=== PATIENT | male | born 1940 | race Caucasian/White ===

== ENCOUNTER 2017-07-24 09:06 | Inpatient (IN) | payer MEDICARE ==
[~2017-07-24] VITALS: Ht 177.8 cm; Wt 68.0 kg
[~2017-07-24 09:06] MED LIST: ACET-1600 PO; ACET500T71 PO; ALLO300T PO; ALPR0.25 PO; AMIO200T42 PO; ASCO10004 PO; ASPI-496 PO; ATOR20TA9 PO; CARV3.1212 PO; CARV3.122 PO; FERR325T18 PO; FURO-92 PO; FURO-93 PO; FURO20TA3 PO; HYDR-3237 PO; HYDR-3240 PO; IRON1TAB60 PO; IRON1TAB62 PO; LEVO750T6 PO; LOSA100T6 PO; LOSA25TA5 PO; LOVA20TA2 PO; MULT-658 PO; POTA99TA2 PO; POTA99TA3 PO; RIVA15TA PO; RIVA20TA PO; TRAM50TA2 PO; indocin PO
[2017-07-24] MEDS ORDERED: SODIUM CHLORIDE FLUSH 10ML SYR IVF ONE ×2 (09:30→10:30)
[2017-07-24 09:35] LABS: ABG COLLECTION SITE RIGHT RADIAL; COLLATERAL CIRCULATION TESTING NORMAL; FIO2 100 %
[2017-07-24 09:44] LABS: ASPARTATE AMINO TRANSFERASE 15 U/L (15-37); BLOOD UREA NITROGEN 13 mg/dL (7-18)
[2017-07-24 09:52] LABS: IS PT STATUS REG ER OR PRE ER? YES
[2017-07-24 09:58] LABS: HEMATOCRIT 28.9 % (39.2-51.8); HEMOGLOBIN 9.9 g/dL (13.7-18.0); WHITE BLOOD COUNT 2.4 x10^3/uL (3.4-10)
[2017-07-24] MEDS ORDERED: SUCCINYLCHOLINE 20 MG/ML, 10ML IVPush ONE (10:00)
[2017-07-24] MEDS ORDERED: MIDAZOLAM 1 MG/ML, 5ML IVPush ONE (10:00)
[2017-07-24] MEDS ORDERED: PROPOFOL 100 ML IV PRN (10:00)
[2017-07-24] MEDS ORDERED: ETOMIDATE 40 MG/20 ML IVPush ONE (10:00)
[2017-07-24 10:03] LABS: DIFF TOTAL CELLS COUNTED 100 CELL DIFF
[2017-07-24 10:16] LABS: ANISOCYTOSIS 1+; POLYCHROMASIA 1+; VERIFY COUNTS? YES
[2017-07-24 10:17] LABS: OVALOCYTES 1+
[2017-07-24] MEDS ORDERED: MIDAZOLAM 10MG/2 ML IVPush PRN (10:30)
[2017-07-24 10:43] LABS: RAPID INFLUENZA A Negative (Negative); RAPID INFLUENZA B Negative (Negative)
[2017-07-24] MEDS: MIDAZOLAM HCL 25 MG in SODIUM CHLORIDE 0.9% 245 ML IV PRN ×2 (10:59→14:36)
[2017-07-24] MEDS ORDERED: ALBUTEROL/IPRATROPIUM 2.5MG/0.5MG, 3 ML ONE ×2 (11:07→14:32)
[2017-07-24] MEDS ORDERED: ONDANSETRON 2MG/ML, 2ML IV PRN (11:30)
[2017-07-24] MEDS ORDERED: FUROSEMIDE 40 MG/4 ML ONE (11:58)
[2017-07-24] MEDS ORDERED: FUROSEMIDE 40 MG/4 ML IV ONE (12:00)
[2017-07-24] MEDS ORDERED: ALBUTEROL/IPRATROPIUM 2.5MG/0.5MG, 3 ML NEB ONE (12:00)
[2017-07-24] MEDS ORDERED: PHARMACY MAY ADJ FOR RENAL FX MC SCH (12:00)
[2017-07-24 12:06] LABS: IS PT STATUS REG ER OR PRE ER? YES
[2017-07-24] MEDS ORDERED: NOREPINEPHRINE 4 MG in SODIUM CHLORIDE 0.9% 246 ML IV PRN (14:00)
[2017-07-24] MEDS: HEPARIN 5,000 UNITS/ML, 1ML SQ SCH (17:07)
[2017-07-24 17:15] LABS: POTASSIUM,URINE RANDOM 26 mmol/L
[2017-07-24 18:16] LABS: ABG COLLECTION SITE RIGHT RADIAL; COLLATERAL CIRCULATION TESTING NORMAL
[2017-07-24 18:28] LABS: BLOOD UREA NITROGEN 14 mg/dL (7-18)
[2017-07-24 18:42] LABS: IS PT STATUS REG ER OR PRE ER? NO
[2017-07-24] MEDS: INSULIN ASPART 100 UNITS/ML, PEN SQ-INSULIN SCH ×2 (20:53→21:14)
[2017-07-24] MEDS: CARVEDILOL 3.125 MG TABLET PO SCH (20:53)
[2017-07-24] MEDS: SODIUM CHLORIDE FLUSH 10ML SYR IVF SCH (20:53)
[2017-07-24] MEDS: ATORVASTATIN 20 MG TABLET PO SCH (20:56)
[2017-07-24] MEDS: POTASSIUM CHLORIDE 20 MEQ PACKET PO SCH ×2 (20:56→21:14)
[2017-07-24] MEDS: FUROSEMIDE 20 MG/2 ML IVPush SCH (20:56)
[2017-07-24] MEDS ORDERED: ETOMIDATE 40 MG/20 ML ONE (23:00)
[2017-07-24] MEDS ORDERED: PROPOFOL 10 MG/ML, 20ML ONE (23:00)
[2017-07-24] MEDS ORDERED: MIDAZOLAM 1 MG/ML, 5ML ONE (23:00)
[2017-07-24] MEDS ORDERED: PROPOFOL 10 MG/ML, 100ML IV ONE (23:00)
[2017-07-24] MEDS ORDERED: SUCCINYLCHOLINE 20 MG/ML, 10ML ONE (23:00)
[2017-07-25] MEDS ORDERED: FUROSEMIDE 40 MG/4 ML IV ONE (01:00)
[2017-07-25] MEDS: HEPARIN 5,000 UNITS/ML, 1ML SQ SCH ×3 (01:52→17:54)
[2017-07-25] MEDS ORDERED: POTASSIUM CHLORIDE 20 MEQ TAB.ER.PRT PO ONE (02:30)
[2017-07-25] MEDS ORDERED: POTASSIUM CHLORIDE 20 MEQ PACKET PO ONE (03:00)
[2017-07-25 04:30] VITALS: BP 101/43
[2017-07-25 04:55] LABS: ABG COLLECTION SITE RIGHT RADIAL; COLLATERAL CIRCULATION TESTING NORMAL
[2017-07-25 05:02] LABS: BLOOD UREA NITROGEN 11 mg/dL (7-18)
[2017-07-25 05:08] LABS: ASPARTATE AMINO TRANSFERASE 19 U/L (15-37); HEMATOCRIT 24.5 % (39.2-51.8); HEMOGLOBIN 8.6 g/dL (13.7-18.0)
[2017-07-25 05:15] LABS: DIFF TOTAL CELLS COUNTED 100 CELL DIFF
[2017-07-25 05:16] LABS: WHITE BLOOD COUNT 1.3 x10^3/uL (3.4-10)
[2017-07-25 05:21] LABS: VERIFY COUNTS? YES
[2017-07-25 05:22] LABS: ANISOCYTOSIS 1+; MICROCYTOSIS 1+; OVALOCYTES 1+; POLYCHROMASIA 1+; SPHEROCYTES 1+
[2017-07-25] MEDS ORDERED: MAGNESIUM SULFATE PMX 4GM/100M 100 ML IV ONE (06:30)
[2017-07-25] MEDS ORDERED: MAGNESIUM SULFATE PMX 2GM/50ML 50 ML IV ONE (06:30)
[2017-07-25] MEDS ORDERED: ACETAMINOPHEN 650 MG/20.3 ML UDC PO PRN (08:30)
[2017-07-25] MEDS: INSULIN ASPART 100 UNITS/ML, PEN SQ-INSULIN SCH ×3 (08:37→21:24)
[2017-07-25] MEDS: AMIODARONE 200 MG TABLET PO SCH (08:37)
[2017-07-25] MEDS: FUROSEMIDE 20 MG/2 ML IVPush SCH (08:38)
[2017-07-25] MEDS: CARVEDILOL 3.125 MG TABLET PO SCH ×2 (08:38→21:11)
[2017-07-25] MEDS: ASCORBIC ACID 500 MG TABLET PO SCH (08:38)
[2017-07-25] MEDS: POTASSIUM CHLORIDE 20 MEQ PACKET PO SCH ×2 (08:38→21:25)
[2017-07-25] MEDS: MULTIVITAMIN 1 TABLET PO SCH (08:39)
[2017-07-25] MEDS: MULTIVITS,STRESS FORMULA 1 TABLET PO SCH (08:41)
[2017-07-25] MEDS ORDERED: DOCUSATE 100 MG CAPSULE PO SCH (09:00)
[2017-07-25] MEDS ORDERED: SODIUM CHLORIDE 0.9% 500 ML IV ONE (09:30)
[2017-07-25] MEDS ORDERED: VANCOMYCIN PER PHARMACY MC PRN (09:30)
[2017-07-25] MEDS: SODIUM CHLORIDE FLUSH 10ML SYR IVF SCH ×2 (09:58→21:12)
[2017-07-25] MEDS ORDERED: PIPERACILLIN/TAZO/PMX 3.375GM 50 ML IV SCH (10:00)
[2017-07-25] MEDS ORDERED: DOCUSATE 50 MG/5 ML, 10ML UDC NG SCH (10:25)
[2017-07-25 10:26] LABS: PATH.CAST-FLAG NOT PRESENT; SPERM-FLAG NOT PRESENT; SRC-FLAG NOT PRESENT; XTAL-FLAG NOT PRESENT; YLC-FLAG NOT PRESENT
[2017-07-25] MEDS: NOREPINEPHRINE 4 MG in SODIUM CHLORIDE 0.9% 246 ML IV PRN ×2 (10:52→17:53)
[2017-07-25] MEDS: VANCOMYCIN 1,400 MG in SODIUM CHLORIDE 0.9% 250 ML IV SCH (10:53)
[2017-07-25] MEDS ORDERED: PHARMACOKINETIC CONSULTATION MC ONE (11:00)
[2017-07-25] MEDS ORDERED: PHARMACOKINETIC MONITORING MC PRN ×2 (11:00)
[2017-07-25] MEDS: PROPOFOL 100 ML IV PRN (12:59)
[2017-07-25] MEDS: ACETAMINOPHEN 650 MG/20.3 ML UDC PO PRN (13:02)
[2017-07-25] MEDS: PIPERACILLIN/TAZO 3.375 GM in SODIUM CHLORIDE 0.9% 50 ML IV SCH (17:53)
[2017-07-25 19:29] LABS: IS PT STATUS REG ER OR PRE ER? NO
[2017-07-25] MEDS: ATORVASTATIN 20 MG TABLET PO SCH (21:25)
[2017-07-26] MEDS: PIPERACILLIN/TAZO 3.375 GM in SODIUM CHLORIDE 0.9% 50 ML IV SCH ×5 (01:02→23:46)
[2017-07-26] MEDS: HEPARIN 5,000 UNITS/ML, 1ML SQ SCH ×4 (01:03→23:48)
[2017-07-26] MEDS: NOREPINEPHRINE 4 MG in SODIUM CHLORIDE 0.9% 246 ML IV PRN ×2 (01:03→11:06)
[2017-07-26] MEDS: INSULIN ASPART 100 UNITS/ML, PEN SQ-INSULIN SCH ×4 (03:00→20:24)
[2017-07-26 04:00] LABS: HEMATOCRIT 26.8 % (39.2-51.8)
[2017-07-26 04:02] LABS: IS PT STATUS REG ER OR PRE ER? NO
[2017-07-26 04:09] LABS: WHITE BLOOD COUNT 1.1 x10^3/uL (3.4-10)
[2017-07-26 04:18] LABS: DIFF TOTAL CELLS COUNTED 100 CELL DIFF
[2017-07-26 04:21] LABS: ANISOCYTOSIS 1+; MICROCYTOSIS 1+; VERIFY COUNTS? YES
[2017-07-26 04:22] LABS: OVALOCYTES 1+; POLYCHROMASIA 1+; SPHEROCYTES 1+
[2017-07-26 04:36] LABS: ABG COLLECTION SITE LEFT RADIAL; COLLATERAL CIRCULATION TESTING NORMAL
[2017-07-26 05:00] VITALS: BP 128/51
[2017-07-26 07:41] LABS: BLOOD UREA NITROGEN 10 mg/dL (7-18)
[2017-07-26] MEDS: CARVEDILOL 3.125 MG TABLET PO SCH ×2 (09:00→20:11)
[2017-07-26] MEDS: SODIUM CHLORIDE 0.9% 500 ML IV SCH ×4 (09:52→11:05)
[2017-07-26] MEDS: PROPOFOL 100 ML IV PRN (09:55)
[2017-07-26] MEDS: MULTIVITAMIN 1 TABLET PO SCH (09:56)
[2017-07-26] MEDS: DOCUSATE 50 MG/5 ML, 10ML UDC NG SCH (09:56)
[2017-07-26] MEDS: AMIODARONE 200 MG TABLET PO SCH (09:56)
[2017-07-26] MEDS: ASCORBIC ACID 500 MG TABLET PO SCH (09:57)
[2017-07-26] MEDS: MULTIVITS,STRESS FORMULA 1 TABLET PO SCH (09:57)
[2017-07-26] MEDS: SODIUM CHLORIDE FLUSH 10ML SYR IVF SCH ×2 (11:06→20:11)
[2017-07-26] MEDS: VANCOMYCIN 1,400 MG in SODIUM CHLORIDE 0.9% 250 ML IV SCH (11:06)
[2017-07-26] MEDS: ACETAMINOPHEN 650 MG/20.3 ML UDC PO PRN (14:56)
[2017-07-26] MEDS ORDERED: NOREPINEPHRINE 4 MG in SODIUM CHLORIDE 0.9% 246 ML IV PRN (16:30)
[2017-07-26] MEDS: ATORVASTATIN 20 MG TABLET PO SCH (20:23)
[2017-07-27] MEDS: NOREPINEPHRINE 4 MG in SODIUM CHLORIDE 0.9% 246 ML IV PRN ×2 (02:58→23:55)
[2017-07-27] MEDS: INSULIN ASPART 100 UNITS/ML, PEN SQ-INSULIN SCH ×4 (03:00→19:54)
[2017-07-27] MEDS: ACETAMINOPHEN 650 MG/20.3 ML UDC PO PRN (03:00)
[2017-07-27 04:40] LABS: ABG COLLECTION SITE RIGHT BRACHIAL
[2017-07-27 04:54] VITALS: BP 112/50
[2017-07-27 05:12] LABS: HEMOGLOBIN 7.9 g/dL (13.7-18.0)
[2017-07-27 05:22] LABS: HEMATOCRIT 22.7 % (39.2-51.8); WHITE BLOOD COUNT 0.9 x10^3/uL (3.4-10)
[2017-07-27 05:33] LABS: BLOOD UREA NITROGEN 10 mg/dL (7-18)
[2017-07-27] MEDS: PIPERACILLIN/TAZO 3.375 GM in SODIUM CHLORIDE 0.9% 50 ML IV SCH ×4 (05:41→23:56)
[2017-07-27 06:12] LABS: DIFF TOTAL CELLS COUNTED 50 CELL DIFFERENTIAL
[2017-07-27 06:14] LABS: ANISOCYTOSIS 1+; MICROCYTOSIS 1+; OVALOCYTES 1+; POLYCHROMASIA 1+; VERIFY COUNTS? YES
[2017-07-27 06:16] LABS: SPHEROCYTES 1+
[2017-07-27] MEDS: PROPOFOL 100 ML IV PRN (06:35)
[2017-07-27] MEDS: AMIODARONE 200 MG TABLET PO SCH (08:40)
[2017-07-27] MEDS: MULTIVITAMIN 1 TABLET PO SCH (08:40)
[2017-07-27] MEDS: DOCUSATE 50 MG/5 ML, 10ML UDC NG SCH (08:40)
[2017-07-27] MEDS: HEPARIN 5,000 UNITS/ML, 1ML SQ SCH ×3 (08:40→23:56)
[2017-07-27] MEDS: ASCORBIC ACID 500 MG TABLET PO SCH (08:41)
[2017-07-27] MEDS: MULTIVITS,STRESS FORMULA 1 TABLET PO SCH (08:41)
[2017-07-27] MEDS: CARVEDILOL 3.125 MG TABLET PO SCH ×2 (09:00→21:00)
[2017-07-27] MEDS ORDERED: SODIUM CHLORIDE 0.9% 500 ML IV ONE (09:30)
[2017-07-27] MEDS: VASOPRESSIN 100 UNIT in SODIUM CHLORIDE 0.9% 495 ML IV PRN (09:36)
[2017-07-27] MEDS: SODIUM CHLORIDE FLUSH 10ML SYR IVF SCH ×2 (09:51→19:49)
[2017-07-27] MEDS: ATORVASTATIN 20 MG TABLET PO SCH (19:48)
[2017-07-28] VITALS (7 sets, daily range): BP systolic 101–134; BP diastolic 50–69
[2017-07-28] MEDS: INSULIN ASPART 100 UNITS/ML, PEN SQ-INSULIN SCH ×2 (03:00→08:26)
[2017-07-28 04:38] LABS: ABG COLLECTION SITE RIGHT BRACHIAL
[2017-07-28 04:41] LABS: BLOOD UREA NITROGEN 13 mg/dL (7-18)
[2017-07-28 04:42] LABS: HEMOGLOBIN 7.2 g/dL (13.7-18.0)
[2017-07-28 04:52] LABS: WHITE BLOOD COUNT 1.1 x10^3/uL (3.4-10)
[2017-07-28] MEDS: PIPERACILLIN/TAZO 3.375 GM in SODIUM CHLORIDE 0.9% 50 ML IV SCH (05:15)
[2017-07-28 05:39] LABS: DIFF TOTAL CELLS COUNTED 100 CELL DIFF
[2017-07-28 05:44] LABS: ANISOCYTOSIS 1+; MICROCYTOSIS 1+; POLYCHROMASIA 1+
[2017-07-28 05:45] LABS: OVALOCYTES 1+
[2017-07-28 05:46] LABS: LARGE PLATELETS 1+; SPHEROCYTES 1+; VERIFY COUNTS? YES
[2017-07-28] MEDS: HEPARIN 5,000 UNITS/ML, 1ML SQ SCH ×2 (08:25→18:15)
[2017-07-28] MEDS: AMIODARONE 200 MG TABLET PO SCH (08:26)
[2017-07-28] MEDS: MULTIVITS,STRESS FORMULA 1 TABLET PO SCH (08:26)
[2017-07-28] MEDS: CARVEDILOL 3.125 MG TABLET PO SCH ×2 (08:26→21:06)
[2017-07-28] MEDS: SODIUM CHLORIDE FLUSH 10ML SYR IVF SCH ×2 (08:26→21:05)
[2017-07-28] MEDS: MULTIVITAMIN 1 TABLET PO SCH (08:26)
[2017-07-28] MEDS: ASCORBIC ACID 500 MG TABLET PO SCH (08:26)
[2017-07-28] MEDS: DOCUSATE 50 MG/5 ML, 10ML UDC NG SCH (08:27)
[2017-07-28] MEDS ORDERED: FUROSEMIDE 20 MG/2 ML IV SCH (09:00)
[2017-07-28] MEDS: AZITHROMYCIN 500 MG in SODIUM CHLORIDE 0.9% 250 ML IV SCH (10:05)
[2017-07-28] MEDS: MEROPENEM 1 GM in SODIUM CHLORIDE 0.9% 100 ML IV SCH ×2 (10:05→18:15)
[2017-07-28] MEDS: VANCOMYCIN 50 MG/ML ORAL SUSP PO SCH ×2 (10:05→16:00)
[2017-07-28] MEDS: NOREPINEPHRINE 4 MG in SODIUM CHLORIDE 0.9% 246 ML IV PRN (14:05)
[2017-07-28] MEDS ORDERED: DIPHENHYDRAMINE 50 MG/ML, 1ML ONE (14:52)
[2017-07-28] MEDS ORDERED: methylPREDNISolone SOD SUCC 125 MG/2 ML ONE (14:53)
[2017-07-28] MEDS ORDERED: methylPREDNISolone SOD SUCC 125 MG/2 ML IVPush ONE (15:00)
[2017-07-28] MEDS ORDERED: DIPHENHYDRAMINE 50 MG/ML, 1ML IVPush ONE (15:00)
[2017-07-28] MEDS ORDERED: FUROSEMIDE 40 MG/4 ML ONE (15:01)
[2017-07-28 15:24] LABS: IS PT STATUS REG ER OR PRE ER? NO
[2017-07-28] MEDS ORDERED: FUROSEMIDE 40 MG/4 ML IV ONE (15:30)
[2017-07-28 15:32] LABS: ABG COLLECTION SITE LEFT BRACHIAL
[2017-07-28 15:49] LABS: PATH.CAST-FLAG NOT PRESENT; SPERM-FLAG NOT PRESENT; SRC-FLAG NOT PRESENT; XTAL-FLAG NOT PRESENT; YLC-FLAG NOT PRESENT
[2017-07-28 17:05] LABS: ABG COLLECTION SITE RIGHT RADIAL; COLLATERAL CIRCULATION TESTING NORMAL
[2017-07-28] MEDS: ATORVASTATIN 20 MG TABLET PO SCH (21:06)
[2017-07-28 21:13] LABS: ABG COLLECTION SITE RIGHT RADIAL; COLLATERAL CIRCULATION TESTING NORMAL
[2017-07-29] MEDS: HEPARIN 5,000 UNITS/ML, 1ML SQ SCH ×5 (00:41→23:41)
[2017-07-29] MEDS: MEROPENEM 1 GM in SODIUM CHLORIDE 0.9% 100 ML IV SCH ×3 (02:20→17:32)
[2017-07-29 03:54] VITALS: BP 116/57
[2017-07-29 04:56] LABS: ABG COLLECTION SITE RIGHT RADIAL
[2017-07-29] MEDS: VASOPRESSIN 100 UNIT in SODIUM CHLORIDE 0.9% 495 ML IV PRN (05:14)
[2017-07-29 05:24] LABS: HEMATOCRIT 23.5 % (39.2-51.8); HEMOGLOBIN 8.1 g/dL (13.7-18.0)
[2017-07-29 05:41] LABS: WHITE BLOOD COUNT 0.5 x10^3/uL (3.4-10)
[2017-07-29 05:52] LABS: DIFF TOTAL CELLS COUNTED 50 CELL DIFFERENTIAL
[2017-07-29 05:58] LABS: ANISOCYTOSIS 1+; MICROCYTOSIS 1+; POLYCHROMASIA 1+; VERIFY COUNTS? YES
[2017-07-29 05:59] LABS: OVALOCYTES 1+
[2017-07-29 06:00] LABS: COLLATERAL CIRCULATION TESTING NORMAL
[2017-07-29 06:03] LABS: SPHEROCYTES 1+
[2017-07-29 07:49] LABS: ABG COLLECTION SITE RIGHT RADIAL; COLLATERAL CIRCULATION TESTING NORMAL
[2017-07-29 08:04] LABS: BLOOD UREA NITROGEN 21 mg/dL (7-18)
[2017-07-29 08:27] LABS: HEMOGLOBIN 8.6 g/dL (13.7-18.0)
[2017-07-29 08:29] LABS: WHITE BLOOD COUNT 0.6 x10^3/uL (3.4-10)
[2017-07-29 08:36] LABS: ANISOCYTOSIS 1+; DIFF TOTAL CELLS COUNTED 50 CELL DIFFERENTIAL; MICROCYTOSIS 1+; OVALOCYTES 1+; POLYCHROMASIA 1+; SPHEROCYTES 1+; VERIFY COUNTS? YES
[2017-07-29] MEDS ORDERED: FUROSEMIDE 40 MG/4 ML IV STA (08:52)
[2017-07-29] MEDS: MULTIVITS,STRESS FORMULA 1 TABLET PO SCH (09:00)
[2017-07-29] MEDS: CARVEDILOL 3.125 MG TABLET PO SCH ×2 (09:00→20:43)
[2017-07-29] MEDS: DOCUSATE 50 MG/5 ML, 10ML UDC NG SCH (09:00)
[2017-07-29] MEDS: ASCORBIC ACID 500 MG TABLET PO SCH (09:00)
[2017-07-29] MEDS: MULTIVITAMIN 1 TABLET PO SCH (09:00)
[2017-07-29] MEDS: AZITHROMYCIN 500 MG in SODIUM CHLORIDE 0.9% 250 ML IV SCH (09:07)
[2017-07-29] MEDS: SODIUM CHLORIDE FLUSH 10ML SYR IVF SCH ×2 (09:08→20:43)
[2017-07-29] MEDS: AMIODARONE 200 MG TABLET PO SCH (12:04)
[2017-07-29] MEDS: ATORVASTATIN 20 MG TABLET PO SCH (20:43)
[2017-07-30] MEDS: MEROPENEM 1 GM in SODIUM CHLORIDE 0.9% 100 ML IV SCH ×3 (02:39→20:46)
[2017-07-30 04:00] VITALS: BP 104/53
[2017-07-30 05:08] LABS: BLOOD UREA NITROGEN 37 mg/dL (7-18)
[2017-07-30 05:50] LABS: DIFF TOTAL CELLS COUNTED 100 CELL DIFF
[2017-07-30 05:51] LABS: HEMATOCRIT 23.8 % (39.2-51.8); HEMOGLOBIN 7.9 g/dL (13.7-18.0)
[2017-07-30 05:53] LABS: WHITE BLOOD COUNT 1.1 x10^3/uL (3.4-10)
[2017-07-30 05:57] LABS: VERIFY COUNTS? YES
[2017-07-30 05:58] LABS: GIANT PLATELETS 1+; LARGE PLATELETS 1+
[2017-07-30 06:00] LABS: ANISOCYTOSIS 1+; MICROCYTOSIS 1+; POLYCHROMASIA 1+
[2017-07-30 06:02] LABS: SPHEROCYTES 1+
[2017-07-30] MEDS ORDERED: POTASSIUM CHLORIDE 20 MEQ TAB.ER.PRT PO ONE (08:00)
[2017-07-30] MEDS: CARVEDILOL 3.125 MG TABLET PO SCH (09:00)
[2017-07-30] MEDS: HEPARIN 5,000 UNITS/ML, 1ML SQ SCH ×3 (09:00→17:02)
[2017-07-30] MEDS ORDERED: FUROSEMIDE 40 MG/4 ML IV ONE (09:00)
[2017-07-30] MEDS: ASCORBIC ACID 500 MG TABLET PO SCH (10:20)
[2017-07-30] MEDS: MULTIVITAMIN 1 TABLET PO SCH (10:20)
[2017-07-30] MEDS: AZITHROMYCIN 500 MG in SODIUM CHLORIDE 0.9% 250 ML IV SCH (10:20)
[2017-07-30] MEDS: MULTIVITS,STRESS FORMULA 1 TABLET PO SCH (10:20)
[2017-07-30] MEDS: DOCUSATE 50 MG/5 ML, 10ML UDC NG SCH (10:21)
[2017-07-30] MEDS: AMIODARONE 200 MG TABLET PO SCH (10:21)
[2017-07-30] MEDS: SODIUM CHLORIDE FLUSH 10ML SYR IVF SCH ×2 (10:21→21:03)
[2017-07-30] MEDS ORDERED: NOREPINEPHRINE 4 MG in SODIUM CHLORIDE 0.9% 246 ML IV PRN (16:30)
[2017-07-30] MEDS: ATORVASTATIN 20 MG TABLET PO SCH (21:03)
[2017-07-31] MEDS: HEPARIN 5,000 UNITS/ML, 1ML SQ SCH ×3 (01:46→17:20)
[2017-07-31 04:00] VITALS: BP 95/52
[2017-07-31] MEDS: MEROPENEM 1 GM in SODIUM CHLORIDE 0.9% 100 ML IV SCH (04:27)
[2017-07-31 05:22] LABS: BLOOD UREA NITROGEN 32 mg/dL (7-18)
[2017-07-31 05:45] LABS: HEMATOCRIT 23.1 % (39.2-51.8); HEMOGLOBIN 7.7 g/dL (13.7-18.0)
[2017-07-31 05:47] LABS: DIFF TOTAL CELLS COUNTED 100 CELL DIFF; WHITE BLOOD COUNT 1.1 x10^3/uL (3.4-10)
[2017-07-31 05:54] LABS: ANISOCYTOSIS 1+; GIANT PLATELETS 1+; LARGE PLATELETS 1+; MICROCYTOSIS 1+; POLYCHROMASIA 1+; SPHEROCYTES 1+; VERIFY COUNTS? YES
[2017-07-31 05:55] LABS: OVALOCYTES 1+
[2017-07-31] MEDS: DOCUSATE 50 MG/5 ML, 10ML UDC NG SCH (08:16)
[2017-07-31] MEDS ORDERED: POTASSIUM CHLORIDE 40 MEQ in SODIUM CHLORIDE 0.9% 100 ML IV ONE (08:30)
[2017-07-31] MEDS: ASCORBIC ACID 500 MG TABLET PO SCH (08:53)
[2017-07-31] MEDS: MULTIVITS,STRESS FORMULA 1 TABLET PO SCH (08:54)
[2017-07-31] MEDS: MULTIVITAMIN 1 TABLET PO SCH (08:54)
[2017-07-31] MEDS: FUROSEMIDE 40 MG TABLET PO SCH (08:54)
[2017-07-31] MEDS: AMIODARONE 200 MG TABLET PO SCH (08:54)
[2017-07-31] MEDS: AZITHROMYCIN 500 MG in SODIUM CHLORIDE 0.9% 250 ML IV SCH (08:54)
[2017-07-31] MEDS: SODIUM CHLORIDE FLUSH 10ML SYR IVF SCH ×2 (08:55→20:30)
[2017-07-31] MEDS ORDERED: VASOPRESSIN 100 UNIT in SODIUM CHLORIDE 0.9% 495 ML IV PRN (09:00)
[2017-07-31] MEDS ORDERED: LEVOFLOXACIN/PMX 500MG/100ML 100 ML IV SCH (09:00)
[2017-07-31] MEDS: LEVOFLOXACIN/PMX 750MG/150ML 150 ML IV SCH (10:08)
[2017-07-31 14:24] VITALS: BP 117/70
[2017-07-31 19:13] VITALS: BP 110/67
[2017-07-31] MEDS: ATORVASTATIN 20 MG TABLET PO SCH (20:30)
[2017-08-01] VITALS (7 sets, daily range): BP systolic 102–125; BP diastolic 63–78
[2017-08-01] MEDS: HEPARIN 5,000 UNITS/ML, 1ML SQ SCH ×3 (01:32→17:42)
[2017-08-01 05:56] LABS: BLOOD UREA NITROGEN 23 mg/dL (7-18)
[2017-08-01 05:58] LABS: HEMOGLOBIN 7.6 g/dL (13.7-18.0)
[2017-08-01 06:06] LABS: HEMATOCRIT 22.1 % (39.2-51.8); WHITE BLOOD COUNT 1.1 x10^3/uL (3.4-10)
[2017-08-01 06:22] LABS: DIFF TOTAL CELLS COUNTED 100 CELL DIFF
[2017-08-01 06:29] LABS: ANISOCYTOSIS 1+; MICROCYTOSIS 1+; POLYCHROMASIA 1+; VERIFY COUNTS? YES
[2017-08-01 06:30] LABS: LARGE PLATELETS 1+; OVALOCYTES 1+; SPHEROCYTES 1+
[2017-08-01] MEDS ORDERED: POTASSIUM CHLORIDE 40 MEQ in SODIUM CHLORIDE 0.9% 100 ML IV ONE (07:00)
[2017-08-01] MEDS: DOCUSATE 50 MG/5 ML, 10ML UDC NG SCH (09:00)
[2017-08-01] MEDS: LEVOFLOXACIN/PMX 750MG/150ML 150 ML IV SCH (09:15)
[2017-08-01] MEDS: AMIODARONE 200 MG TABLET PO SCH (09:17)
[2017-08-01] MEDS: SODIUM CHLORIDE FLUSH 10ML SYR IVF SCH ×2 (09:17→19:28)
[2017-08-01] MEDS: POTASSIUM CHLORIDE 20 MEQ PACKET PO SCH (09:17)
[2017-08-01] MEDS: FUROSEMIDE 40 MG TABLET PO SCH (09:18)
[2017-08-01] MEDS: MULTIVITAMIN 1 TABLET PO SCH (09:18)
[2017-08-01] MEDS: ASCORBIC ACID 500 MG TABLET PO SCH (09:18)
[2017-08-01] MEDS: MULTIVITS,STRESS FORMULA 1 TABLET PO SCH (09:18)
[2017-08-01] MEDS: AZITHROMYCIN 500 MG in SODIUM CHLORIDE 0.9% 250 ML IV SCH (11:41)
[2017-08-01] MEDS ORDERED: FUROSEMIDE 20 MG/2 ML IV ONE ×2 (13:30)
[2017-08-01] MEDS ORDERED: POTASSIUM CHLORIDE 20 MEQ TAB.ER.PRT PO SCH (17:00)
[2017-08-01] MEDS: ATORVASTATIN 20 MG TABLET PO SCH (19:28)
[2017-08-02 00:22] VITALS: BP 103/59
[2017-08-02] MEDS: HEPARIN 5,000 UNITS/ML, 1ML SQ SCH ×2 (03:47→12:00)
[2017-08-02 04:36] LABS: BLOOD UREA NITROGEN 19 mg/dL (7-18)
[2017-08-02 04:43] LABS: HEMATOCRIT 26.3 % (39.2-51.8); HEMOGLOBIN 8.6 g/dL (13.7-18.0)
[2017-08-02 04:44] LABS: WHITE BLOOD COUNT 1.7 x10^3/uL (3.4-10)
[2017-08-02 04:48] LABS: DIFF TOTAL CELLS COUNTED 100 CELL DIFF
[2017-08-02 04:53] LABS: ANISOCYTOSIS 1+; MICROCYTOSIS 1+; VERIFY COUNTS? YES
[2017-08-02 04:54] LABS: GIANT PLATELETS 1+; LARGE PLATELETS 1+; OVALOCYTES 1+; POLYCHROMASIA 1+; SPHEROCYTES 1+
[2017-08-02 08:14] VITALS: BP 113/66
[2017-08-02] MEDS: ASCORBIC ACID 500 MG TABLET PO SCH (08:18)
[2017-08-02] MEDS: CARVEDILOL 3.125 MG TABLET PO SCH (08:18)
[2017-08-02] MEDS: LEVOFLOXACIN/PMX 750MG/150ML 150 ML IV SCH (08:18)
[2017-08-02] MEDS: MULTIVITS,STRESS FORMULA 1 TABLET PO SCH (08:18)
[2017-08-02] MEDS: POTASSIUM CHLORIDE 20 MEQ PACKET PO SCH (08:18)
[2017-08-02] MEDS: MULTIVITAMIN 1 TABLET PO SCH (08:19)
[2017-08-02] MEDS: AMIODARONE 200 MG TABLET PO SCH (08:19)
[2017-08-02] MEDS: SODIUM CHLORIDE FLUSH 10ML SYR IVF SCH (08:19)
[2017-08-02] MEDS: DOCUSATE 50 MG/5 ML, 10ML UDC NG SCH (08:19)
[2017-08-02] MEDS: FUROSEMIDE 40 MG TABLET PO SCH (08:19)
[2017-08-02 14:17] VITALS: BP 104/68
== END 2017-08-02 17:41 | disposition home or self-care (01) | DRG 871 ==
LOC: ED 10:09 → EDIP 10:27 → CCU 15:59 → 5SO 07-31 14:16
PROVIDERS: ADMIT Family Medicine; ATTEND Family Medicine
PROC: 5A1945Z Respiratory Ventilation, 24-96 Consecutive Hours (ICD-10-PCS; 2017-07-24)
PROC: 0BH17EZ Insertion of Endotracheal Airway into Trachea, Via Natural or Artificial Opening (ICD-10-PCS; 2017-07-24)
PROC: 0T9B70Z Drainage of Bladder with Drainage Device, Via Natural or Artificial Opening (ICD-10-PCS; principal; 2017-07-25)
PROC: 30233N1 Transfusion of Nonautologous Red Blood Cells into Peripheral Vein, Percutaneous Approach (ICD-10-PCS; 2017-07-28)
PROC: 5A09457 Assistance with Respiratory Ventilation, 24-96 Consecutive Hours, Continuous Positive Airway Pressure (ICD-10-PCS; 2017-07-28)
DX: A41.9 Sepsis, unspecified organism (principal); J96.21 Acute and chronic respiratory failure with hypoxia; J69.0 Pneumonitis due to inhalation of food and vomit; Z99.11 Dependence on respirator [ventilator] status; E87.4 Mixed disorder of acid-base balance; D70.9 Neutropenia, unspecified; C95.90 Leukemia, unspecified not having achieved remission; I50.43 Acute on chronic combined systolic (congestive) and diastolic (congestive) heart failure; J96.22 Acute and chronic respiratory failure with hypercapnia; N17.9 Acute kidney failure, unspecified; D46.21 Refractory anemia with excess of blasts 1; D69.6 Thrombocytopenia, unspecified; E87.6 Hypokalemia; G89.29 Other chronic pain; I05.0 Rheumatic mitral stenosis; I11.0 Hypertensive heart disease with heart failure; I25.10 Atherosclerotic heart disease of native coronary artery without angina pectoris; I25.5 Ischemic cardiomyopathy; I48.0 Paroxysmal atrial fibrillation; J44.9 Chronic obstructive pulmonary disease, unspecified; R04.0 Epistaxis; Z51.5 Encounter for palliative care; Z86.718 Personal history of other venous thrombosis and embolism; I25.2 Old myocardial infarction; Z87.891 Personal history of nicotine dependence; Z99.81 Dependence on supplemental oxygen; Z88.5 Allergy status to narcotic agent; Z88.8 Allergy status to other drugs, medicaments and biological substances; Z91.040 Latex allergy status; Z79.899 Other long term (current) drug therapy
CPT/HCPCS: 31500; 36415; 36600; 51702; 71010; 80048; 80053; 81001; 82436; 82533; 82803; 82962; 83036; 83605; 83735; 83880; 84133; 84300; 84443; 84478; 84484; 85025; 85610; 85730; 86078; 86850; 86900; 86923; 87040; 87070; 87077; 87081; 87186; 87205; 87324; 87400; 93005; 93306; 94002; 94003; 94150; 94660; J0456; J1644; J1815; J1940; J1956; J2185; J2250; J2543; J2704; J3370; J3480; J7620; J0330; J1200; J2930; J3475; J7040; J7050; P9016; P9040

== ENCOUNTER 2017-08-25 11:07 | Inpatient (IN) | payer MEDICARE ==
[~2017-08-25] VITALS: Ht 162.6 cm; Wt 69.0 kg
[2017-08-25] MEDS ORDERED: FUROSEMIDE 40 MG/4 ML ONE (11:27)
[2017-08-25] MEDS ORDERED: SODIUM CHLORIDE FLUSH 10ML SYR IVF ONE (11:30)
[2017-08-25] MEDS ORDERED: FUROSEMIDE 40 MG/4 ML IVP ONE (11:30)
[2017-08-25] MEDS ORDERED: VANCOMYCIN PER PHARMACY MC PRN ×2 (12:00→20:00)
[2017-08-25] MEDS ORDERED: PHARMACOKINETIC CONSULTATION MC ONE ×3 (12:00→20:30)
[2017-08-25] MEDS ORDERED: MEROPENEM 1 GM in SODIUM CHLORIDE 0.9% 100 ML IV ONE (12:00)
[2017-08-25 12:01] LABS: INTERNATIONAL NORMALIZED RATIO 1.03 (0.93-1.1); PROTHROMBIN TIME 10.7 Seconds (9.6-11.5)
[2017-08-25 12:03] LABS: BASOPHILS # (AUTO) 0.01 x10^3/uL (0-0.1); BASOPHILS % (AUTO) 0 % (0-1); EOSINOPHILS # (AUTO) 0.07 x10^3/uL (0-0.4); EOSINOPHILS % (AUTO) 2 % (1-7); LYMPHOCYTES # (AUTO) 1.49 x10^3/uL (1-3.4); LYMPHOCYTES % (AUTO) 38 % (22-44); MD NO; MEAN CORPUSCULAR HEMOGLOBIN 33.6 pg (27.5-34.5); MEAN CORPUSCULAR HGB CONC 33.1 g/dL (33.2-36.2); MEAN CORPUSCULAR VOLUME 101.5 fL (81-97); MEAN PLATELET VOLUME 9.1 fL (7.4-10.4); MONOCYTES # (AUTO) 0.09 x10^3/uL (0.2-0.8); MONOCYTES % (AUTO) 2 % (2-9); NEUTROPHILS # (AUTO) 2.26 x10^3/uL (1.8-6.8); NEUTROPHILS % (AUTO) 58 % (42-75); PLATELET COUNT 169 x10^3/uL (130-400); RED BLOOD COUNT 3.25 x10^6/uL (4.38-5.82)
[2017-08-25 12:05] LABS: ALANINE AMINOTRANSFERASE 18 U/L (12-78); ANION GAP 9 mmol/L (5-15); CALCIUM 8.6 mg/dL (8.5-10.1); CHLORIDE 101 mmol/L (98-107)
[2017-08-25 12:09] LABS: ALKALINE PHOSPHATASE 107 U/L (45-117); TOTAL PROTEIN 7.9 g/dL (6.4-8.2); TROPONIN I < 0.015 ng/mL (0.000-0.045)
[2017-08-25 12:26] LABS: RAPID INFLUENZA A Negative (Negative); RAPID INFLUENZA B Negative (Negative)
[2017-08-25] MEDS ORDERED: VANCOMYCIN 1,300 MG in SODIUM CHLORIDE 0.9% 250 ML IV ONE (12:30)
[2017-08-25] MEDS ORDERED: DOCUSATE 100 MG CAPSULE PO PRN (13:00)
[2017-08-25] MEDS ORDERED: ENALAPRILAT 1.25 MG/ML, 2ML IVPush PRN (13:00)
[2017-08-25] MEDS: SENNA/DOCUSATE TABLET PO SCH (13:00)
[2017-08-25] MEDS ORDERED: ACETAMINOPHEN 325 MG TABLET PO PRN (13:00)
[2017-08-25] MEDS ORDERED: POLYETHYLENE GLYCOL 17 GM PACKET PO PRN (13:00)
[2017-08-25 13:25] LABS: FIO2 75 %
[2017-08-25 16:05] LABS: ANION GAP 9 mmol/L (5-15); CALCIUM 8.4 mg/dL (8.5-10.1); CHLORIDE 103 mmol/L (98-107); CREATININE 0.82 mg/dL (0.7-1.3)
[2017-08-25] MEDS: ENOXAPARIN 40 MG/0.4 ML SQ SCH (16:45)
[2017-08-25] MEDS ORDERED: PHARMACOKINETIC MONITORING MC PRN ×2 (20:00→20:30)
[2017-08-25] MEDS: ATORVASTATIN 20 MG TABLET PO SCH (20:01)
[2017-08-25] MEDS: MEROPENEM 1 GM in SODIUM CHLORIDE 0.9% 100 ML IV SCH (20:01)
[2017-08-25] MEDS: CARVEDILOL 3.125 MG TABLET PO SCH (20:55)
[2017-08-26 04:00] VITALS: BP 90/42
[2017-08-26 04:30] LABS: ANION GAP 5 mmol/L (5-15); CALCIUM 8.3 mg/dL (8.5-10.1); CHLORIDE 105 mmol/L (98-107); CREATININE 0.64 mg/dL (0.7-1.3)
[2017-08-26] MEDS: MEROPENEM 1 GM in SODIUM CHLORIDE 0.9% 100 ML IV SCH ×3 (04:34→20:41)
[2017-08-26 04:46] LABS: BASOPHILS # (AUTO) 0.01 x10^3/uL (0-0.1); BASOPHILS % (AUTO) 0 % (0-1); EOSINOPHILS # (AUTO) 0.03 x10^3/uL (0-0.4); EOSINOPHILS % (AUTO) 2 % (1-7); LYMPHOCYTES # (AUTO) 0.75 x10^3/uL (1-3.4); LYMPHOCYTES % (AUTO) 38 % (22-44); MEAN CORPUSCULAR HEMOGLOBIN 34.1 pg (27.5-34.5); MEAN CORPUSCULAR HGB CONC 33.9 g/dL (33.2-36.2); MEAN CORPUSCULAR VOLUME 100.7 fL (81-97); MEAN PLATELET VOLUME 8.6 fL (7.4-10.4); MONOCYTES # (AUTO) 0.11 x10^3/uL (0.2-0.8); MONOCYTES % (AUTO) 6 % (2-9); NEUTROPHILS # (AUTO) 1.08 x10^3/uL (1.8-6.8); NEUTROPHILS % (AUTO) 55 % (42-75); PLATELET COUNT 86 x10^3/uL (130-400); RED BLOOD COUNT 2.48 x10^6/uL (4.38-5.82); RED CELL DISTRIBUTION WIDTH 21.1 % (9.4-14.8)
[2017-08-26 04:47] LABS: MD SCAN
[2017-08-26] MEDS: SENNA/DOCUSATE TABLET PO SCH (07:40)
[2017-08-26] MEDS: AMIODARONE 200 MG TABLET PO SCH (07:46)
[2017-08-26] MEDS: FERROUS SULFATE 325 MG TABLET PO SCH (07:46)
[2017-08-26] MEDS: ASCORBIC ACID 500 MG TABLET PO SCH (07:46)
[2017-08-26] MEDS: OMEPRAZOLE 20 MG CAPSULE.DR PO SCH (07:46)
[2017-08-26] MEDS: CARVEDILOL 3.125 MG TABLET PO SCH ×2 (07:47→20:41)
[2017-08-26 11:26] VITALS: BP 94/55
[2017-08-26] MEDS: VANCOMYCIN 1,300 MG in SODIUM CHLORIDE 0.9% 250 ML IV SCH (13:46)
[2017-08-26 14:06] VITALS: BP 99/55
[2017-08-26] MEDS: ENOXAPARIN 40 MG/0.4 ML SQ SCH (15:01)
[2017-08-26 18:57] VITALS: BP 103/57
[2017-08-26 20:40] VITALS: BP 102/57
[2017-08-26] MEDS: ATORVASTATIN 20 MG TABLET PO SCH (20:41)
[2017-08-27 01:30] VITALS: BP 87/51
[2017-08-27] MEDS: MEROPENEM 1 GM in SODIUM CHLORIDE 0.9% 100 ML IV SCH ×3 (03:18→20:54)
[2017-08-27 08:51] VITALS: BP 120/68
[2017-08-27] MEDS: FERROUS SULFATE 325 MG TABLET PO SCH (09:00)
[2017-08-27] MEDS ORDERED: ARTIFICIAL TEARS OPHTH SOLN 15ML EACHEYE PRN (09:30)
[2017-08-27] MEDS: OMEPRAZOLE 20 MG CAPSULE.DR PO SCH (09:43)
[2017-08-27] MEDS: AMIODARONE 200 MG TABLET PO SCH (09:43)
[2017-08-27] MEDS: CARVEDILOL 3.125 MG TABLET PO SCH ×2 (09:44→20:54)
[2017-08-27] MEDS: SENNA/DOCUSATE TABLET PO SCH (09:44)
[2017-08-27] MEDS: ASCORBIC ACID 500 MG TABLET PO SCH (09:45)
[2017-08-27] MEDS: POLYTRIM OPHTH 10ML RIGHTEYE SCH ×5 (10:51→22:00)
[2017-08-27] MEDS: FLUTICASONE NASAL SPRAY 16GM NAS SCH ×2 (10:51→20:54)
[2017-08-27] MEDS: ENOXAPARIN 40 MG/0.4 ML SQ SCH (13:05)
[2017-08-27] MEDS: VANCOMYCIN 1,300 MG in SODIUM CHLORIDE 0.9% 250 ML IV SCH (13:05)
[2017-08-27 15:21] VITALS: BP 110/65
[2017-08-27] MEDS ORDERED: FUROSEMIDE 40 MG TABLET PO SCH (19:00)
[2017-08-27 20:50] VITALS: BP 96/58
[2017-08-27] MEDS: GUAIFENESIN 200 MG TABLET PO SCH ×2 (20:53→21:00)
[2017-08-27] MEDS: ATORVASTATIN 20 MG TABLET PO SCH (20:54)
[2017-08-28 01:43] VITALS: BP 89/54
[2017-08-28] MEDS: POLYTRIM OPHTH 10ML RIGHTEYE SCH ×4 (01:43→09:48)
[2017-08-28] MEDS: MEROPENEM 1 GM in SODIUM CHLORIDE 0.9% 100 ML IV SCH (04:15)
[2017-08-28 06:04] LABS: MEAN CORPUSCULAR HEMOGLOBIN 34.5 pg (27.5-34.5); MEAN CORPUSCULAR HGB CONC 33.6 g/dL (33.2-36.2); MEAN CORPUSCULAR VOLUME 102.6 fL (81-97); RED BLOOD COUNT 2.58 x10^6/uL (4.38-5.82); RED CELL DISTRIBUTION WIDTH 21.6 % (9.4-14.8)
[2017-08-28 06:18] LABS: CHLORIDE 107 mmol/L (98-107)
[2017-08-28 06:28] LABS: ANION GAP 8 mmol/L (5-15); CALCIUM 8.3 mg/dL (8.5-10.1); CREATININE 0.64 mg/dL (0.7-1.3)
[2017-08-28 06:31] LABS: BASOPHILS % (AUTO) 0 % (0-1); EOSINOPHILS # (AUTO) 0.05 x10^3/uL (0-0.4); EOSINOPHILS % (AUTO) 2 % (1-7); LYMPHOCYTES # (AUTO) 0.83 x10^3/uL (1-3.4); LYMPHOCYTES % (AUTO) 42 % (22-44); MD SCAN; MEAN PLATELET VOLUME 8.7 fL (7.4-10.4); MONOCYTES # (AUTO) 0.11 x10^3/uL (0.2-0.8); MONOCYTES % (AUTO) 6 % (2-9); NEUTROPHILS # (AUTO) 0.97 x10^3/uL (1.8-6.8); NEUTROPHILS % (AUTO) 50 % (42-75); PLATELET COUNT 85 x10^3/uL (130-400)
[2017-08-28 07:08] VITALS: BP 105/63
[2017-08-28] MEDS: SENNA/DOCUSATE TABLET PO SCH (09:00)
[2017-08-28] MEDS ORDERED: FUROSEMIDE 40 MG TABLET PO SCH (09:00)
[2017-08-28] MEDS: FLUTICASONE NASAL SPRAY 16GM NAS SCH (09:45)
[2017-08-28] MEDS: ASCORBIC ACID 500 MG TABLET PO SCH (09:45)
[2017-08-28] MEDS: CARVEDILOL 3.125 MG TABLET PO SCH (09:46)
[2017-08-28] MEDS: OMEPRAZOLE 20 MG CAPSULE.DR PO SCH (09:46)
[2017-08-28] MEDS: AMIODARONE 200 MG TABLET PO SCH (09:46)
[2017-08-28] MEDS: GUAIFENESIN 200 MG TABLET PO SCH (09:46)
[2017-08-28] MEDS: FERROUS SULFATE 325 MG TABLET PO SCH (09:48)
[2017-08-28 12:10] VITALS: BP 129/73
[2017-08-28] MEDS ORDERED: POLY10DR3 RIGHTEYE (13:45)
[2017-08-28] MEDS ORDERED: GUAI200T3 PO (13:45)
[2017-08-28] MEDS ORDERED: FLUT16SP NAS (13:45)
== END 2017-08-28 15:03 | disposition home or self-care (01) | DRG 871 ==
LOC: ED 11:58 → EDIP 12:06 → CCU 14:27 → 5SO 08-26 10:55 → DCLOUNGE 08-28 15:02
PROVIDERS: ADMIT Family Medicine; ATTEND Family Medicine
PROC: 5A09357 Assistance with Respiratory Ventilation, Less than 24 Consecutive Hours, Continuous Positive Airway Pressure (ICD-10-PCS; principal; 2017-08-25)
DX: A41.9 Sepsis, unspecified organism (principal); I50.43 Acute on chronic combined systolic (congestive) and diastolic (congestive) heart failure; J96.21 Acute and chronic respiratory failure with hypoxia; J18.9 Pneumonia, unspecified organism; D61.818 Other pancytopenia; I48.0 Paroxysmal atrial fibrillation; Z99.81 Dependence on supplemental oxygen; J44.0 Chronic obstructive pulmonary disease with (acute) lower respiratory infection; I11.0 Hypertensive heart disease with heart failure; D46.9 Myelodysplastic syndrome, unspecified; R65.20 Severe sepsis without septic shock; I25.5 Ischemic cardiomyopathy; I25.10 Atherosclerotic heart disease of native coronary artery without angina pectoris; Y95 Nosocomial condition; Z51.5 Encounter for palliative care; Z85.6 Personal history of leukemia; I25.2 Old myocardial infarction; Z86.718 Personal history of other venous thrombosis and embolism; Z87.891 Personal history of nicotine dependence; Z95.0 Presence of cardiac pacemaker; Z91.040 Latex allergy status; Z88.8 Allergy status to other drugs, medicaments and biological substances
CPT/HCPCS: 36415; 36600; 71045; 80048; 80053; 82803; 83605; 83735; 83880; 84484; 85025; 85610; 85730; 87040; 87081; 87400; 93005; 94660; 96365; 96366; 96368; 96375; J1650; J1940; J2185; J3370; J7050

== ENCOUNTER 2017-11-25 13:02 | Emergency (ER) | payer MEDICARE ==
[~2017-11-25] VITALS: Ht 165.1 cm; Wt 62.0 kg
[2017-11-25] VITALS (8 sets, daily range): BP systolic 95–114; BP diastolic 41–68
[~2017-11-25 13:02] MED LIST changes: +FLUT16SP NAS; +FURO40TA6 PO; +GUAI200T3 PO; +ISOS30TA8 PO; +POLY10DR3 RIGHTEYE; +SPIR25TA PO
[2017-11-25] MEDS ORDERED: SODIUM CHLORIDE FLUSH 10ML SYR IVF ONE (14:00)
[2017-11-25 14:16] LABS: INTERNATIONAL NORMALIZED RATIO 1.15 (0.93-1.1); PROTHROMBIN TIME 11.8 Seconds (9.6-11.5)
[2017-11-25 14:19] LABS: ALBUMIN 3.9 g/dL (3.4-5.0); ANION GAP 8 mmol/L (5-15); CALCIUM 8.9 mg/dL (8.5-10.1); CHLORIDE 96 mmol/L (98-107); CREATININE 1.34 mg/dL (0.7-1.3)
[2017-11-25 14:23] LABS: TROPONIN I < 0.015 ng/mL (0.000-0.045)
[2017-11-25 14:36] LABS: MEAN CORPUSCULAR HEMOGLOBIN 33.9 pg (27.5-34.5); MEAN CORPUSCULAR HGB CONC 33.6 g/dL (33.2-36.2); PLATELET COUNT 89 x10^3/uL (130-400); RED BLOOD COUNT 2.19 x10^6/uL (4.38-5.82)
[2017-11-25 14:43] LABS: HEMOGRAM NOTE RECHECKED; RED CELL DISTRIBUTION WIDTH 22.1 % (9.4-14.8)
[2017-11-25 14:44] LABS: MD YES
[2017-11-25 14:51] LABS: ANISOCYTOSIS 1+; BAND#(MANUAL) 0.01 x10^3/uL; BANDS%(MANUAL) 1 % (0-7); BASOS#(MANUAL) 0.03 x10^3/uL (0-0.1); BASOS% (MANUAL) 4 % (0-1); EOS#(MANUAL) 0.01 x10^3/uL (0.0-0.4); EOS% (MANUAL) 1 % (1-7); LYMPH#(MANUAL) 0.54 x10^3/uL (1-3.4); LYMPHS% (MANUAL) 77 % (22-44); MONOS#(MANUAL) 0.02 x10^3/uL (0.3-2.7); MONOS% (MANUAL) 3 % (2-9); MYELOCYTES# (MANUAL) 0.01 x10^3/uL (0-0); MYELOCYTES% (MANUAL) 2 % (0-0); NRBC % (MANUAL) 7 % (0-1); SEG#(MANUAL) 0.08 x10^3/uL (1.8-6.8); SEGS% (MANUAL) 12 % (42-75)
[2017-11-25 14:52] LABS: OVALOCYTES 1+; POLYCHROMASIA 1+
[2017-11-25 14:53] LABS: <PLATELET ESTIMATE> DECREASED; GIANT PLATELETS 1+; LARGE PLATELETS 1+
== END 2017-11-25 22:02 | disposition home or self-care (01) ==
LOC: ED 16:38
DX: D64.89 Other specified anemias (principal); D61.810 Antineoplastic chemotherapy induced pancytopenia; C94.6 Myelodysplastic disease, not elsewhere classified; D61.818 Other pancytopenia; I50.9 Heart failure, unspecified; I25.10 Atherosclerotic heart disease of native coronary artery without angina pectoris; Z95.0 Presence of cardiac pacemaker; Z87.891 Personal history of nicotine dependence
CPT/HCPCS: 36415; 36430; 71045; 80048; 82040; 84484; 85025; 85610; 85730; 86850; 86900; 86923; 99285; P9040